=== PATIENT | male | born 1990 | race Caucasian/White ===

== ENCOUNTER 2018-03-17 00:41 | Emergency (ER) | payer MEDICAID ==
[2018-03-17 01:11] LABS: BASOPHILS 0.4 % (0-2); EOSINOPHILS 3.7 % (0-7); HEMATOCRIT 45.2 % (42.0-54.0); HEMOGLOBIN 15.6 g/dL (13.5-17.5); IMMATURE GRANULOCYTES 0.4 % (0-5); LYMPHOCYTES 44.1 % (15-50); MCH 29.9 pg (26.0-34.0); MCHC 34.5 g/dL (31.0-37.0); MCV 86.8 fL (80.0-100.0); MEAN PLATELET VOLUME 9.5 fL (7.4-10.4); MONOCYTES 10.8 % (2-11); NEUTROPHILS 40.6 % (40-80); PLATELET COUNT 349 10x3/uL (130-400); RBC 5.21 10x6/uL (4.20-6.10); RDW 13.1 % (11.5-14.5); WBC 10.8 10x3/uL (4.8-10.8)
[2018-03-17 01:26] LABS: ALBUMIN 3.5 g/dL (3.4-5.0); ALKALINE PHOSPHATASE 55 U/L (46-116); ALT (SGPT) 57 U/L (10-68); BILIRUBIN - TOTAL 0.15 mg/dL (0.2-1.3); CALC OSMOLALITY 277 mosm/kg (275-300); CALCIUM 8.8 mg/dL (8.5-10.1); CARBON DIOXIDE 26.8 mmol/L (21.0-32.0); CHLORIDE - SERUM 101 mmol/L (98-107); GLUCOSE 102 mg/dL (74-106); POTASSIUM - SERUM 3.9 mmol/L (3.5-5.1); PROTEIN - SERUM 7.4 g/dL (6.4-8.2); SODIUM 139 mmol/L (136-145); UREA NITROGEN 12 mg/dL (7-18); eGFR NON AFRICAN AMERICAN > 90 mL/min (90-120)
[2018-03-17 01:28] LABS: APTT 27.9 SECONDS (22.8-39.4); INR 0.98 (0.85-1.17); PROTIME 12.6 SECONDS (11.6-15.0)
[2018-03-17 01:30] LABS: D-DIMER-QUANTITATIVE 0.3 ug/mLFEU (0.20-0.54)
[2018-03-17 01:38] LABS: CKMB 0.2 U/L (0.0-3.6); CREATINE KINASE 58 UL (21-232); PRO BNP 4 pg/mL (0-125); TROPONIN-I < 0.017 ng/mL (0.000-0.060)
== END 2018-03-17 03:10 | disposition home or self-care (01) ==
LOC: D.ER 00:41
PROVIDERS: Family Medicine
DX: J20.9 Acute bronchitis, unspecified (principal); J45.901 Unspecified asthma with (acute) exacerbation; F17.200 Nicotine dependence, unspecified, uncomplicated